=== PATIENT | female | born 1970 | race Caucasian/White ===

== ENCOUNTER 2017-04-30 05:35 | Day surgery (SDC) | payer OTHER ==
[~2017-04-30 05:35] MED LIST: ADVANCED PAIN200 MG; APAP; CALCIUM CITRAT1 EA25 PO; FLEXERIL10 MG PO; LOMAIRA8 MG PO; LYRICA25 MG PO; MACROBID100 MG/CAP PO; METFORMIN HCL500 M2 PO; MIRALAX12 EA; MULTIVITAMINS1 EAC7 PO; NEURONTIN300 M1 PO; NORCO 5/325 TAB1 TAB PO; NORCO 5/3251 TAB PO; OXYCODONE; STOOL SOFTENER50 M1 PO; SUPPORT-5001 CAP PO; TOPAMAX25 MG PO; TOPAMAX50 MG PO; VITAMIN B6100 MG; VITAMIN D5000 UNI2 PO; VITAMIN D50000 UNIT PO; [UNRECOGNIZED DRUG - CODE] PO
[2017-05-01] MEDS ORDERED: PERCOCET 5-3251 EACH PO (00:15)
== END 2017-05-01 08:00 ==
LOC: SHSA 05:35 → ORW 08:28 → PACU 09:41 → OBGF 10:38
PROC: 0UT94ZZ Resection of Uterus, Percutaneous Endoscopic Approach (ICD-10-PCS; principal; 2017-04-30)
PROC: 0UTC4ZZ Resection of Cervix, Percutaneous Endoscopic Approach (ICD-10-PCS; 2017-04-30)
PROC: 0UT24ZZ Resection of Bilateral Ovaries, Percutaneous Endoscopic Approach (ICD-10-PCS; 2017-04-30)
PROC: 0UT74ZZ Resection of Bilateral Fallopian Tubes, Percutaneous Endoscopic Approach (ICD-10-PCS; 2017-04-30)
PROC: 8E0W4CZ Robotic Assisted Procedure of Trunk Region, Percutaneous Endoscopic Approach (ICD-10-PCS; 2017-04-30)
DX: N80.0 Endometriosis of uterus (principal); D25.1 Intramural leiomyoma of uterus; N83.11 Corpus luteum cyst of right ovary; K66.0 Peritoneal adhesions (postprocedural) (postinfection); D50.0 Iron deficiency anemia secondary to blood loss (chronic); M19.90 Unspecified osteoarthritis, unspecified site; F32.9 Major depressive disorder, single episode, unspecified; F90.9 Attention-deficit hyperactivity disorder, unspecified type; J45.909 Unspecified asthma, uncomplicated; J32.9 Chronic sinusitis, unspecified; K21.9 Gastro-esophageal reflux disease without esophagitis; G62.9 Polyneuropathy, unspecified; N25.81 Secondary hyperparathyroidism of renal origin; E28.2 Polycystic ovarian syndrome; E66.01 Morbid (severe) obesity due to excess calories; Z68.42 Body mass index [BMI] 45.0-49.9, adult; Z79.84 Long term (current) use of oral hypoglycemic drugs; Z79.899 Other long term (current) drug therapy; Z88.1 Allergy status to other antibiotic agents; Z88.5 Allergy status to narcotic agent; Z88.8 Allergy status to other drugs, medicaments and biological substances; Z87.442 Personal history of urinary calculi; Z90.49 Acquired absence of other specified parts of digestive tract; Z98.84 Bariatric surgery status; Z98.890 Other specified postprocedural states
CPT/HCPCS: J1170; J1580; J2405; J3010; J7030; J7121